=== PATIENT | male | born 1995 ===

== ENCOUNTER 2020-02-07 13:19 | Outpatient (REF) | payer OTHER, SELFPAY | END 2020-02-07 13:20 | disposition home or self-care (01) | LOC: HO.LAB 13:19 | PROVIDERS: Visit Provider Internal Medicine | DX: Z20.828 Contact with and (suspected) exposure to other viral communicable diseases (principal) | CPT/HCPCS: C9803; U0003 ==

== ENCOUNTER 2020-05-02 16:48 | Emergency (ER) | payer OTHER, SELFPAY ==
[2020-05-02 20:04] VITALS: BP 126/57; PULSE 81; RESP 16; TEMP 36.7; O2SAT 99; BMI 68.8
== END 2020-05-03 00:11 | disposition left against medical advice (07) ==
PROVIDERS: Emergency Provider Emergency Medicine
DX: M25.539 Pain in unspecified wrist (principal)
CPT/HCPCS: 99281; 99282

== ENCOUNTER 2020-05-04 17:00 | Emergency (ER) | payer MEDICAID, SELFPAY ==
[2020-05-04 17:23] VITALS: BP 98/79; PULSE 82; RESP 18; TEMP 36.9; O2SAT 99; BMI 31.1
--- NOTE | 2020-05-04 20:01 | ED.GENADULT ---
HPI - General Adult General Chief complaint: General Medical Stated complaint: Laceration Time Seen by Provider: 05/04/20 19:54 Source: patient Mode of arrival: ambulatory History of Present Illness HPI narrative: 25-year-old male with no significant past medical history presenting to the ED complaining of continued/worsening left hand/wrist pain s/p deep laceration on black ice 1 week ago, and requesting referral to orthopedic hand surgeon. Reports was seen and treated at [facility] after incident, had sutures placed for close approximation, was placed in splint, and told to follow-up DANIELLE with hand surgeon. Patient reports has been unable to follow-up w/surgeon due to [place]/insurance issues. Reports tingling. Denies fever, chills, weakness, numbness Onset (ago): day(s) Review of Systems Review of Systems: Constitutional: No Fever, No Chills Musculoskeletal: +joint pain, No Myalgias,+ Joint Swelling Skin: No Skin Lesions, No rash Neuro: No Weakness, No Numbness, + Paresthesias Yes all other systems are reviewed and are negative [facility] Past Medical History Attestation statement: The following information was validated with the patient. Social History Social History Advance Directives: No Advance Directives Information Provided: Yes Physical Exam Vital Signs: Vital Signs: Last Vital Signs Temp 98.4 F 05/04/20 17:23 Pulse 82 05/04/20 17:23 Resp 18 05/04/20 17:23 BP 98/79 05/04/20 17:23 Pulse Ox 99 05/04/20 17:23 Body Mass Index 31.1 Const: General: cooperative, healthy appearing, comfortable and no acute distress Orientation/consciousness: patient oriented x3 Limitations: no limitations HENMT: Head: Yes normal to inspection Ears: hearing grossly normal bilaterally General nose exam: Normal external nose present Face and sinus: Yes normal facial exam Eyes: General: appearance normal, both eyes and all related structures EOM: EOMs intact bilaterally Resp: Effort & Inspection: normal respiratory effort Cardio: Rate: regular rate Peripheral pulses: radial pulses present Skin: Other: Healing left wrist laceration noted with 5 sutures intact. No active cellulitis/expressible drainage. No fluctuance or induration. Healing surrounding ecchymosis Rashes: no rashes Neuro: General: patient oriented x3 and tone normal Gait exam (Neuro): Normal gait present Extrem: Other: Volar splint intact to left wrist. Removed. Left wrist with notable swelling and tenderness to palpation. Neurovascularly intact. No active infection General: Yes normal to inspection Medical Decision Making MDM Narrative Medical decision making narrative: 25-year-old male with no significant past medical history presenting to the ED complaining of continued/worsening left hand/wrist pain s/p deep laceration on black ice 1 week ago, and requesting referral to orthopedic hand surgeon. On exam VSS, NAD/well-appearing. Physical exam as above. Volar splint removed. Laceration well appearing, no active infection. Volar splint replaced. Will refer patient to our orthopedic surgeon. Dr. Walton aware Patient already on Keflex outpatient from [facility] Plan: Replace splint, Orthopedic referral Discharge Plan Discharge Clinical Impression: Visit for wound check Patient Disposition: Home, Self-Care Instructions: Splint Care (ED) Additional Instructions: Keep splint on, dry, and clean Ice, elevate You need to follow-up with the orthopedic hand specialist as soon as possible If her fingers become swollen, discolored, numb, or pain becomes unbearable remove splint and return to the ED immediately Take Tylenol Motrin at home for pain/swelling Referrals: Courtney Vargas MD [Physician] - 2 days
--- NOTE | 2020-05-04 20:12 | PC.NURSE ---
PT VOLAR SPLINT REMOVED BY YISSEL JANG SURICAL SITE AREA DSD REMOVED BY YISSEL JANG. AREA WNL CLEANED WITH NORMAL SALINE AND SUTURES COVERED WITH XEROFORM AND NON STICK DSD THEN VOLAR SPLINT APPLIED BY MAKENZIE URBINA.
== END 2020-05-04 22:49 | disposition home or self-care (01) ==
PROVIDERS: Emergency Provider Internal Medicine
DX: S61.512A Laceration without foreign body of left wrist, initial encounter (principal); M25.532 Pain in left wrist; W00.0XXA Fall on same level due to ice and snow, initial encounter; Y93.01 Activity, walking, marching and hiking; Y92.9 Unspecified place or not applicable; Y99.9 Unspecified external cause status; Z48.00 Encounter for change or removal of nonsurgical wound dressing
CPT/HCPCS: 99284

== ENCOUNTER → 2020-05-07 10:47 | Outpatient (BNVA) | payer OTHER, SELFPAY | PROVIDERS: Visit Provider Orthopaedic Surgery ==

== ENCOUNTER → 2020-05-08 08:58 | Outpatient (BNVA) | payer OTHER, SELFPAY | PROVIDERS: Visit Provider Orthopaedic Surgery | DX: S61.512A Laceration without foreign body of left wrist, initial encounter (principal); S66.922A Laceration of unspecified muscle, fascia and tendon at wrist and hand level, left hand, initial encounter; S64.02XA Injury of ulnar nerve at wrist and hand level of left arm, initial encounter; S54.12XA Injury of median nerve at forearm level, left arm, initial encounter | CPT/HCPCS: 99202 ==

== ENCOUNTER 2020-05-15 06:12 | Day surgery (SDC) | payer OTHER, SELFPAY ==
--- NOTE | 2020-05-14 09:59 | HO.ANESPROP2 ---
Documented by User: Ping Husain 05/14/20 09:59 HPI - Anesthesia Eval Consult details Narrative: 25yo M for Hand/Finger(s) Arthroplasty [facility] Active Problems Active Problems: All Active Problems (Updated 05/08/20 @ 10:53 by Courtney Vargas MD) Laceration of left median nerve (Acute) Laceration of left ulnar nerve at wrist and hand level (Acute) Laceration of left wrist with tendon involvement (Acute) Past Medical History Medical History No significant past medical history Social History Social History Smoking Status: Current some day smoker Years Smoked: 8 Smoked in Last 30 Days: Yes Use of substances other than those prescribed or required for medical reasons: Yes Substance Use Frequency: Occasionally Advance Directives: No Advance Directives Information Provided: Yes Recently lost weight without trying: No Current occupational status: unemployed Current occupation: laid off [employer] Meds Allergies Allergy/AdvReac Type Severity Reaction Status Date / Time No Known Allergies Allergy Verified 05/08/20 10:09 Home Medications Medication Instructions Recorded Confirmed Last Taken Type cephalexin 500 mg capsule 500 mg PO BID 05/08/20 Unknown History Exam Exam Date and Time: May 14, 2020 0959 Assessment and Plan Assessment Anesthesia Assessment: Chart Reviewed Documented by User: Anayeli Paul 05/15/20 07:28 [facility] Past Medical History Medical History No significant past medical history Social History Social History Smoking Status: Current some day smoker Years Smoked: 8 Smoked in Last 30 Days: Yes Use of substances other than those prescribed or required for medical reasons: Yes Substance Use Frequency: Occasionally Advance Directives: No Advance Directives Information Provided: Yes Recently lost weight without trying: No Current occupational status: unemployed Current occupation: laid off [employer] Meds Allergies Allergy/AdvReac Type Severity Reaction Status Date / Time No Known Allergies Allergy Verified 05/08/20 10:09 Home Medications Medication Instructions Recorded Confirmed Last Taken Type cephalexin 500 mg capsule 500 mg PO BID 05/08/20 Unknown History Exam Airway Mallampati Class: II TM Dist: >3cm Neck ROM: Full Assessment and Plan Assessment Anesthesia Assessment: Anesthesia Plan Discussed and Chart Reviewed Final Anesthetic Review NPO: Yes ASA Class: I Final Preanesthetic Review: No Changes in Pt Med Stat, Meds/Allgs Chart Reviewed, Consent Obtained/Reviewed and Anes Risks/Benef Reviewed Patient Risk: Low Procedure Risk: Low Assessment/Block/Sedation in SS: Assess/Block/Sedation-SS Anesthetic Plan Anesthetic Plan: GA Disposition: Standard PACU
[2020-05-15] VITALS (9 sets, daily range): BP systolic 106–134; BP diastolic 56–77; PULSE 71–120; RESP 16–18; TEMP 36.6–37.2; O2SAT 97–99; BMI 31.1
[2020-05-15] MEDS: Lactated Ringers 1,000 ML 100 ML IVCONT (06:40)
--- NOTE | 2020-05-15 10:04 | MHC.SHP ---
Pre-Procedural Eval Section B Chief Complaint: ulnar nerve injury Allergies: Allergies Allergy/AdvReac Type Severity Reaction Status Date / Time No Known Allergies Allergy Verified 05/08/20 10:09 Plan I have reviewed the history and physical and performed a pertinent physical examination on my patient. No changes have occurred unless specified.
--- NOTE | 2020-05-15 10:15 | W.PM.OPN ---
Operative Note Operative Note Date of Service: 05/15/20 Narrative: Operative Note Narrative: Preop diagnosis: 1. Left volar wrist laceration 2. Left median nerve laceration at the wrist 3. Possible left ulnar nerve laceration at the wrist 4. Possible flexor digitorum superficialis, and flexor pollicis longus tendon lacerations at the wrist Postop diagnosis: 1. Left volar wrist laceration 2. Left palmaris longus tendon laceration at the wrist 3. Left median nerve and left ulnar nerve contusions Procedure: 1. Left volar wrist laceration wound exploration 2. Left median nerve release and neurolysis distal forearm through the carpal tunnel 3. Left ulnar nerve release and neurolysis from the distal forearm through Guyon's canal 4. Delayed primary closure volar wrist wound measuring 10 cm Surgeon: Courtney Vargas MD Anesthesia: General Findings: Laceration of palmaris longus tendon FPL all 4 FDP and all 4 FDS tendons intact. Median nerve intact the distal forearm through the zone of injury. The laceration involves the proximal 90% of the transverse carpal ligament. Ulnar nerve and artery intact from the distal forearm through Guyon's canal. During induction of anesthesia patient noted to bring all fingers to a tight fist with his left hand. Implants: None Tourniquet time: 56 minutes EBL: 5.0 ml Specimen: None Drains: None Complications: None Disposition: Brought to the recovery room in stable condition Plan: Follow-up in 10-14 days for wound check, suture removal Remove splint and allowed to work on gentle active range of motion. Activity modification while awaiting return of sensation to digits. Indications: The patient is a 25 year old man with with an approximately 10 cm longitudinally oriented laceration in the area of the carpal tunnel and volar distal forearm. This occurred when he slipped on black ice with a glass bottle in his hand. He had dense numbness in the median and ulnar nerve distributions when 1st seen, and again in preop hold. Able to demonstrate abduction and adduction fingers, and some flexion of all fingers, and now of the thumb IP joint in preop hold. The risks and benefits of operative treatment, including but not limited to risk of damage to blood vessels, nerves, tendons, infection, recurrence, persistent pain or numbness, incomplete resolution of preoperative symptoms, or need for further surgery were discussed with the patient and they wished to proceed with surgery. Procedure: Once consent was obtained patient was brought back to the operating suite and placed in the operating table in a supine position. . Perioperative antibiotics and anesthesia was administered by the anesthesia team. A tourniquet was applied to the proximal aspect of the left upper extremity and the limb was prepped and draped in a standard surgical fashion. The limb was elevated exsanguinated with Esmarch bandage and the tourniquet inflated to 250 mm of mercury for a total tourniquet time of 56 minutes. The sutures were removed from the longitudinally oriented laceration in the palm and volar distal forearm. Tenotomy scissors were then used to explore this wound. Palmaris longus tendon was found to be lacerated. The was debrided of a small amount of nonviable tissue at the wound edges, and also from the palmaris longus tendon using tenotomy scissors and a 15. Blade. The wound was then irrigated with normal saline. I then extended the proximal aspect of the laceration, which was angled somewhat more radial, proximally and ulnarly using a 15. Blade through the skin to the subcutaneous tissues. Tenotomy scissors were then used to dissect down to the level of the volar forearm fascia of and created an ulnarly based flap to further evaluate the underlying structures. The volar forearm fascia so was opened longitudinally using tenotomy scissors. The FDS muscle bellies and tendons were noted to be intact as I extended distally to the carpal tunnel. The laceration incised the proximal 90% of the transverse carpal ligament, and the distal 6-7 cm of the volar forearm fascia. Using tenotomy scissors I released the remaining distal aspect of the transverse carpal ligament. I then identified the median nerve in the forearm and performed a neurolysis extending distally evaluating the median nerve through the zone of injury and through the carpal tunnel. The median nerve was intact throughout its course. All 4 FDS tendons were intact through the carpal tunnel. There was no evidence of extension of the laceration deep to this area. I was also able to palpate the FPL tendon back to its muscle belly and it was also intact. All 4 FDP tendons were much deeper than the zone of injury and presumed to be intact. The laceration did also angle somewhat ulnarly over the transverse carpal ligament. I identified the ulnar nerve and ulnar artery in the distal forearm and followed it distally performing a neurolysis and releasing the structures through Guyon's canal. Both the ulnar nerve and ulnar artery appeared to be intact along their course and through the zone of injury to where the ulnar nerve split into its deep and superficial branches. There is no evidence that I could see, of penetration and injury beyond this area. At this point the tourniquet was deflated and hemostasis obtained with a brief period of local pressure and bipolar electrocautery. The wound was copiously irrigated with normal saline. The subcutaneous layer was closed with 4-0 Vicryl suture, and the skin edges were reapproximated with 4-0 nylon suture. The wound was infiltrated with some 1% lidocaine with epinephrine for postop pain control and a sterile dressing was applied. A short volar splint was also applied that would allow for active finger range of motion. The patient appears to have tolerated the procedure well and with no complications. All digits were well vascularized conclusion of the case.
[2020-05-15] MEDS: Ketorolac Tromethamine 15 MG/ML VIAL IVPUSH (10:16)
[2020-05-15] MEDS: oxyCODONE HCl Immed Release 5 MG TABLET 10 MG PO (10:21)
== END 2020-05-15 11:36 | disposition home or self-care (01) ==
PROVIDERS: Visit Provider Orthopaedic Surgery
PROC: (CPT 64721; principal; 2020-05-15 07:30)
DX: S66.822A Laceration of other specified muscles, fascia and tendons at wrist and hand level, left hand, initial encounter (principal); S64.12XA Injury of median nerve at wrist and hand level of left arm, initial encounter; W01.110A Fall on same level from slipping, tripping and stumbling with subsequent striking against sharp glass, initial encounter; W00.0XXA Fall on same level due to ice and snow, initial encounter; Y93.89 Activity, other specified; Y92.9 Unspecified place or not applicable; Y99.9 Unspecified external cause status
CPT/HCPCS: 64721; 64719; J0131; J0690; J1100; J1885; J2250; J2405; J3010

== ENCOUNTER → 2020-05-24 09:47 | Outpatient (BNVA) | payer OTHER, SELFPAY | PROVIDERS: Visit Provider Orthopaedic Surgery | DX: S61.512D Laceration without foreign body of left wrist, subsequent encounter (principal); S66.922D Laceration of unspecified muscle, fascia and tendon at wrist and hand level, left hand, subsequent encounter | CPT/HCPCS: 99212 ==

== ENCOUNTER 2020-08-31 14:13 | Outpatient (REF) | payer OTHER, SELFPAY | END 2020-08-31 14:14 | disposition home or self-care (01) | LOC: HO.LAB 14:13 | PROVIDERS: Visit Provider Internal Medicine | DX: Z20.822 Contact with and (suspected) exposure to COVID-19 (principal) | CPT/HCPCS: C9803; U0003; U0005 ==

== ENCOUNTER 2020-11-15 19:14 | Emergency (ER) | payer OTHER, SELFPAY ==
[2020-11-15 19:57] VITALS: BP 100/52; PULSE 74; RESP 18; TEMP 36.7; O2SAT 98; BMI 32.3
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
[2020-11-15] MEDS: oxyCODONE HCl Immed Release 5 MG TABLET 10 MG PO (21:50)
[2020-11-15] MEDS: Cyclobenzaprine HCl 10 MG TABLET PO (21:51)
== END 2020-11-15 21:37 | disposition home or self-care (01) ==
PROVIDERS: Emergency Provider Internal Medicine
DX: S39.012A Strain of muscle, fascia and tendon of lower back, initial encounter (principal); V43.52XA Car driver injured in collision with other type car in traffic accident, initial encounter; Y93.9 Activity, unspecified; Y92.410 Unspecified street and highway as the place of occurrence of the external cause; Y99.9 Unspecified external cause status; Z79.899 Other long term (current) drug therapy
CPT/HCPCS: 99283; 99284

== ENCOUNTER 2022-08-06 19:56 | Emergency (ER) | payer OTHER, SELFPAY ==
[2022-08-06 20:07] VITALS: BP 97/66; PULSE 70; RESP 18; TEMP 36.2; O2SAT 95; BMI 24.4
--- NOTE | 2022-08-06 20:08 | ED.UPPEXIN ---
HPI - Extremity Injury (Upper) General Chief Complaint: Wound/Laceration Stated Complaint: finger lac, cut at work Source: patient, RN notes reviewed and old records reviewed Mode of arrival: ambulatory History of Present Illness HPI narrative: 27-year-old male with no significant past medical history presenting to ED complaining of laceration to left thumb s/p using a drawing box tender earlier today. Denies injury to the area. Tetanus unknown. Denies numbness, tingling, weakness. MD complaint: injury to: finger Onset (ago): hour(s) Related Data Home Medications Medication Instructions Recorded Confirmed cephalexin 500 mg capsule 500 mg PO BID 05/08/20 Previous Rx's Medication Instructions Recorded hydrocodone 5 mg-acetaminophen 325 1 tab PO Q4-6H PRN pain #10 tabs 05/10/20 mg tablet hydrocodone 5 mg-acetaminophen 325 1 - 2 tab PO Q6H PRN pain #15 tabs 05/15/20 mg tablet cyclobenzaprine 10 mg tablet 10 mg PO Q8H #20 tabs 11/15/20 ibuprofen 600 mg tablet 600 mg PO Q6H PRN pain #20 tabs 11/15/20 Allergies Allergy/AdvReac Type Severity Reaction Status Date / Time No Known Allergies Allergy Verified 05/24/20 10:06 Review of Systems Review of Systems: Constitutional: No Fever, No Chills ENT/Mouth: No Ear Pain, No Nasal Congestion Cardiovascular: No Chest Pain, No SOB Respiratory: No Cough, No Sputum Gastrointestinal: No Nausea, No Vomiting, No Diarrhea, No Constipation, No Abdominal pain Musculoskeletal: No joint pain, No Myalgias, No Joint Swelling Skin: +Skin Lesions, No rash Neuro: No Weakness, No Numbness, No Paresthesias Yes all other systems are reviewed and are negative Constitutional: Constitutional: Reports as per [facility] Past Medical History Attestation statement: The following information was validated with the patient. 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- [employer] Physical Exam Vital Signs: Vital Signs: Last Vital Signs Temp 97.2 F 08/06/22 20:07 Pulse 70 05/24/23 20:07 Resp 18 08/06/22 20:07 BP 97/66 08/06/22 20:07 Pulse Ox 95 08/06/22 20:07 O2 Del Method Room Air 08/06/22 20:07 BMI result Body Mass Index 24.4 Const: General: cooperative, healthy appearing and no acute distress Orientation/consciousness: patient oriented x3 Limitations: no limitations HEENT: Head: Yes normal to inspection and Yes atraumatic Ears: hearing grossly normal bilaterally General nose exam: Normal external nose present Face and sinus: Yes normal facial exam Eyes: General: appearance normal, both eyes and all related structures EOM: EOMs intact bilaterally Neck: Neck: Yes normal visual inspection and Yes no meningeal signs Resp: Effort & Inspection: normal respiratory effort and no respiratory distress Cardio: Rate: regular rate Skin: Rashes: no rashes Wounds: no wounds Neuro: General: patient oriented x3, tone normal and no meningeal signs Gait exam (Neuro): Normal gait present Extrem: Other: + 1 cm superficial laceration noted to distal aspect left 1st digit, no nail involvement. Bleeding controlled. Sensation intact. Full range of motion intact. NV intact Medications Administered Discontinued Medications Generic Name Dose Route Start Last Admin Trade Name Freq PRN Reason Stop Dose Admin Diphtheria/Tetanus/Acell Pertussis 0.5 ml 08/06/22 20:08 08/06/22 20:14 Diphth,Pertus(Acell),Tet Adult 0.5 Ml Syringe IM 08/06/22 20:09 0.5 ml .ONCE ONE Administration Medical Decision Making Medical Decision Making MDM Narrative: 27-year-old male with no significant past medical history presenting to ED complaining of laceration to left thumb s/p using a drawing box tender earlier today. On exam vital signs stable, NAD, nontoxic appearing, physical exam as above with superficial laceration to left thumb. Bleeding controlled. Underlying structures intact. No evidence of cellulitis/infection or drainage. Will Dermabond area and update tetanus Results discussed with patient including worrisome signs and symptoms and strict return precautions, and when to return to the emergency department. They verbalized understanding and feel safe for discharge at this time. Differential Diagnosis Differential Diagnoses: The differential diagnosis associated with the presentation includes As above External Record Review External record reviewed: Inpatient record, Office record, Outpatient record, Prior outpatient labs, Prior outpatient radiology, Primary care record and Outside ED record Tests considered The following testing was considered but not selected: As above Procedures Laceration Laceration 1: Site: hand Side (If applicable): left Size (cm): 1 Description: linear and flap Depth: simple, single layer Pre-repair: deep structures intact Skin layer closed with: other (dermabond) Discharge Plan Discharge Clinical Impression: Finger laceration Patient Disposition: Home, Self-Care Instructions: Finger Laceration (ED) Additional Instructions: Keep skin glue on, dry and clean To not pick at the area If begins look infected, is red, there is drainage or you fever return to the ED your tetanus was updated Prescriptions: No Action hydrocodone-acetaminophen 5-325 mg tablet 1 tab PO Q4-6H PRN (Reason: pain) Qty: 10 0RF cyclobenzaprine 10 mg tablet 10 mg PO Q8H Qty: 20 0RF ibuprofen 600 mg tablet 600 mg PO Q6H PRN (Reason: pain) Qty: 20 0RF hydrocodone-acetaminophen 5-325 mg tablet 1 - 2 tab PO Q6H PRN (Reason: pain) Qty: 15 0RF Referrals: Physician,Unknown J [Primary Care Provider] - Stand Alone Forms: Work/School Release Interventions: ED Discharge Assessment Last Done: 08/06/22 20:18
[2022-08-06] MEDS: Diphth,Pertus(ACell),Tet Adult 0.5 ML SYRINGE IM (20:14)
== END 2022-08-06 20:27 | disposition home or self-care (01) ==
LOC: HO.ED 20:26
PROVIDERS: Emergency Provider Emergency Medicine
DX: S61.012A Laceration without foreign body of left thumb without damage to nail, initial encounter (principal); W45.8XXA Other foreign body or object entering through skin, initial encounter; Y93.89 Activity, other specified; Y92.9 Unspecified place or not applicable; Y99.0 Civilian activity done for income or pay
CPT/HCPCS: 12001; 90471; 90715; 99282; 99284

== ENCOUNTER 2024-05-02 15:08 | Emergency (ER) | payer OTHER, SELFPAY ==
--- NOTE | ~2024-05-02 | XR_ITS ---
CLINICAL HISTORY: cough, CP 2 view chest x-ray Comparison: None Findings: No consolidation or effusion. Heart size is normal. No acute fracture. IMPRESSION: 1. No acute findings. This document has been electronically signed by: Anisa Johnson MD on 05/02/2024 16:31:45
[2024-05-02 15:22] VITALS: BP 153/80; PULSE 105; RESP 18; O2SAT 98; BMI 33.9
--- NOTE | 2024-05-02 15:23 | ED.GENADULT ---
HPI - General Adult General Chief complaint: Upper Respiratory Symptoms Stated complaint: Flu symptoms Time Seen by Provider: 05/02/24 19:05 Source: patient and RN notes reviewed Mode of arrival: ambulatory Limitations: no limitations History of Present Illness ED Provider: Neha Andrew PA-C HPI narrative: This is a [id number]-male who presents to the ER with complaints of cough, congestion, CP, body aches x 4 days. Girlfriend +flu. No hx of asthma. Patient reports that the chest pain only occurs with coughing. He has been taking [id number] cold and flu medication with some relief. Denies any palpitations, abdominal pain, nausea or vomiting. Able to tolerate p.o. MD complaint: Cough, congestion, body aches Onset (ago): day(s) Quality: aching Pain Consistency: constant Relieving factors: none Exacerbating factors: none Associated symptoms: denies other symptoms Treatments prior to arrival: none Related Data Home Medications ?Medication ?Instructions ?Recorded ?Confirmed cephalexin 500 mg capsule 500 mg PO BID 05/08/20 Previous Rx's ?Medication ?Instructions ?Recorded hydrocodone 5 mg-acetaminophen 325 1 tab PO Q4-6H PRN pain #10 tabs 05/10/20 mg tablet hydrocodone 5 mg-acetaminophen 325 1 - 2 tab PO Q6H PRN pain #15 tabs 05/15/20 mg tablet cyclobenzaprine 10 mg tablet 10 mg PO Q8H #20 tabs 11/15/20 ibuprofen 600 mg tablet 600 mg PO Q6H PRN pain #20 tabs 11/15/20 acetaminophen 500 mg tablet 1,000 mg (2 x 500 mg) PO Q8H PRN 05/02/24 (Tylenol Extra Strength) fever or pain #30 tabs ibuprofen 600 mg tablet 600 mg PO Q6H PRN pain or fevers 05/02/24 #30 tabs ondansetron 4 mg disintegrating 4 mg PO Q6H PRN nausea and 05/02/24 tablet vomiting #12 tabs Allergies Allergy/AdvReac Type Severity Reaction Status Date / Time No Known Allergies Allergy Verified 05/02/24 15:26 Review of Systems Review of Systems: Yes all other systems are reviewed and are negative Constitutional: Constitutional: Reports as per HPI [facility] Past Medical History Surgical History H/O wrist surgery Social History Social History Years Smoked: 8 Advance Directives: No Advance Directives Information Provided: No Do you have a plan to hurt others: No Plan Current occupational status: unemployed 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- [employer] Physical Exam ED Vital Signs: Vital Signs - 24 hr 05/02/24 15:22 05/02/24 18:51 05/02/24 19:19 Temperature 98.5 F 98.5 F Pulse Rate 105 H 98 98 Respiratory Rate 18 18 18 Blood Pressure 153/80 H 148/73 H 148/73 H Pulse Oximetry 98 98 98 Oxygen Delivery Method Room Air BMI result Body Mass Index 33.9 Const General: cooperative, comfortable and no acute distress Orientation/consciousness: patient oriented x3 Limitations: no limitations HENMT Head: Yes normal to inspection, Yes normocephalic and Yes atraumatic Ears: hearing grossly normal bilaterally and TM's normal bilaterally General nose exam: Normal external nose present Face and sinus: Yes normal facial exam Mouth: Normal oral and palatal mucosa present, oropharynx normal and moist mucous membranes Throat: Yes posterior oropharynx normal Eyes General: appearance normal, both eyes and all related structures Eyelids: Yes eyelids normal Conjunctivae: conjunctivae normal Sclerae: sclerae normal Pupils: Equal, round and reactive pupils present EOM: EOMs intact bilaterally Neck Neck: Yes normal visual inspection, Yes full ROM and Yes no lymphadenopathy Lymphatic: no lymphadenopathy noted Chest Chest palpation & inspection: normal inspection of the chest Resp Effort & Inspection: normal respiratory effort and able to speak in complete sentences Auscultation: clear to auscultation bilaterally, no crackles, no rales, no rhonchi and no wheezes Cardio Rate: regular rate Rhythm: regular rhythm Heart sounds: S1 normal heart sound present and S2 normal heart sound present GI Inspection: Yes normal to inspection Skin General skin exam: no rashes or lesions noted Trauma: no lacerations or abrasions Wounds: no wounds Neuro General: patient oriented x3 and moves all extremities Cranial nerves: Yes Equal, round and reactive pupils present Extrem General: Yes normal to inspection Right upper extremity: normal to inspection Left upper extremity: normal to inspection Right lower extremity: normal to inspection Left lower extremity: normal to inspection Medical Decision Making Medical Decision Making MDM Narrative: This is a 29-year-old male who presents emergency department with concerns for cough, diarrhea, body aches for the last 4 days. Recent exposure to flu. On arrival, patient mildly tachycardic and hypertensive at 153/80 at 105 all other vital signs within normal limits. He is afebrile. Patient tested positive for influenza chest x-ray revealing no acute findings. EKG normal sinus rhythm at a ventricular rate of 93 beats per minute, no ST elevation or depression. Repeat vital signs reveal that he is no longer tachycardic, blood pressure slightly improved to 140 8/73, he is afebrile. Lungs are clear to auscultation bilaterally. He was out of the window for Tamiflu. Encouraged lots of fluids, and rest, given strict return precautions. Patient understands and agrees with plan. Patient stable for discharge. Differential Diagnosis Differential Diagnoses: The differential diagnosis associated with the presentation includes Flu, COVID, RSV, pneumonia Admission/Observation Consideration of admission/observation: Escalation of care including admission/observation considered Lab Data [facility] Lab Attestation statement: I reviewed the patient's lab results. Positive influenza Labs: Lab Results 05/02/24 Range/Units 15:49 Influenza Type A (PCR) POSITIVE A (Negative) Influenza Type B (PCR) NEGATIVE (Negative) RSV RNA Qual (PCR) NEGATIVE (Negative) SARS-CoV-2 RNA (RT-PCR) NEGATIVE (Negative) S. pyogenes GrpA YEYO Negative (Negative) Independent Interpretation I performed an independent interpretation of an: EKG Interpretation: EKG normal sinus rhythm at a ventricular rate of 93 beats per minute, no ST elevation or depression. Radiology Impression Discussion of test interpretation with radiology: I have reviewed the radiologist's reading. Radiologist Impression: CLINICAL HISTORY: cough, CP 2 view chest x-ray Comparison: None Findings: No consolidation or effusion. Heart size is normal. No acute fracture. IMPRESSION: 1. No acute findings. This document has been electronically signed by: Anisa Johnson MD on 05/02/2024 16:31:45 Dictated By: Anisa Johnson MD Discharge Plan Discharge Clinical Impression: Influenza A Patient Disposition: Home, Self-Care Instructions: Influenza (ED) Additional Instructions: You were seen in the emergency department and tested positive for influenza A. It is very important that you drink plenty of fluids get plenty of rest. Alternate between ibuprofen and or Tylenol as needed for your symptoms. Take ibuprofen 600 mg every 6 hours. Take Tylenol 1g (2 tablets) every 8 hours. Zofran is a medication that can be taken for nausea. If any new or worsening symptoms occur including but not limited to worsening chest pain, shortness of breath, please seek emergent care. Prescriptions: New ibuprofen 600 mg tablet 600 mg PO Q6H PRN (Reason: pain or fevers) Qty: 30 0RF acetaminophen [Tylenol Extra Strength] 500 mg tablet 1,000 mg PO Q8H PRN (Reason: fever or pain) Qty: 30 0RF ondansetron 4 mg tablet,disintegrating 4 mg PO Q6H PRN (Reason: nausea and vomiting) Qty: 12 0RF No Action hydrocodone-acetaminophen 5-325 mg tablet 1 tab PO Q4-6H PRN (Reason: pain) Qty: 10 0RF cyclobenzaprine 10 mg tablet 10 mg PO Q8H Qty: 20 0RF ibuprofen 600 mg tablet 600 mg PO Q6H PRN (Reason: pain) Qty: 20 0RF hydrocodone-acetaminophen 5-325 mg tablet 1 - 2 tab PO Q6H PRN (Reason: pain) Qty: 15 0RF Interventions: ED Discharge Assessment Last Done: 05/02/24 19:19 Discharge Date/Time: 05/02/24 19:20 Print Language: Slovak
--- NOTE | 2024-05-02 15:24 | ECG_ITS ---
Test Reason : CP Blood Pressure : */* mmHG Vent. Rate : 93 BPM Atrial Rate : 93 BPM P-R Int : 170 ms QRS Dur : 72 ms QT Int : 328 ms P-R-T Axes : 53 62 15 degrees QTcB Int : 407 ms Normal sinus rhythm Normal ECG No previous ECGs available Referred By: Neha Andrew Electronically Signed By: TJ FAUST
[2024-05-02 16:01] LABS: IDNOW Serial# 08D9AD1C; Strep A Nucleic Acid Negative (Negative)
[2024-05-02 16:34] LABS: Influenza A PCR POSITIVE (Negative); Influenza B PCR NEGATIVE (Negative); Resp Syncy Virus RNA Qual PCR NEGATIVE (Negative); SARS COV2 PCR INHOUSE NEGATIVE (Negative)
[2024-05-02 18:51] VITALS: BP 148/73; PULSE 98; RESP 18; TEMP 36.9; O2SAT 98
[2024-05-02 19:19] VITALS: BP 148/73; PULSE 98; RESP 18; TEMP 36.9; O2SAT 98
== END 2024-05-02 19:20 | disposition home or self-care (01) ==
PROVIDERS: Physician Assistant Medical; Emergency Provider Emergency Medicine
DX: J10.1 Influenza due to other identified influenza virus with other respiratory manifestations (principal); R05.9 Cough, unspecified; R07.89 Other chest pain; M79.10 Myalgia, unspecified site; R00.0 Tachycardia, unspecified; R03.0 Elevated blood-pressure reading, without diagnosis of hypertension; Z79.899 Other long term (current) drug therapy; Z03.818 Encounter for observation for suspected exposure to other biological agents ruled out
CPT/HCPCS: 0241U; 71046; 87651; 93005; 99283

== ENCOUNTER → 2024-05-02 15:24 | Outpatient (BNV) | payer OTHER, SELFPAY | PROVIDERS: Emergency Provider Emergency Medicine; Visit Provider Internal Medicine | DX: R07.9 Chest pain, unspecified (principal) | CPT/HCPCS: 93010 ==

== ENCOUNTER → 2024-05-02 15:24 | Outpatient (BNV) | payer OTHER, SELFPAY | PROVIDERS: Visit Provider Radiology Diagnostic Radiology | DX: R05.9 Cough, unspecified (principal) | CPT/HCPCS: 71046 ==